=== PATIENT | female | born 1975 | race Two or more races ===

== ENCOUNTER → 2019-12-27 | Outpatient (CLI) | payer OTHER | END | disposition home or self-care (01) | LOC: SONOGRAMA 09:42 → MAMO-SONO 09:45 | PROVIDERS: ATTEND Obstetrics & Gynecology | DX: N84.0 Polyp of corpus uteri (principal); N88.8 Other specified noninflammatory disorders of cervix uteri ==

== ENCOUNTER 2020-03-20 11:11 | Emergency (ER) | payer OTHER ==
[~2020-03-20] VITALS: Ht 167.6 cm; Wt 68.0 kg
[2020-03-20] MEDS ORDERED: SYNTHROID100 MCG PO (11:22)
[2020-03-20] MEDS ORDERED: PROAIR HFA8.5 GM IH (11:22)
[2020-03-20] MEDS ORDERED: MONTELUKAST SOD10 MG PO (11:22)
[2020-03-20] MEDS ORDERED: GABAPENTIN100 M2 PO (11:22)
[2020-03-20] MEDS ORDERED: RESTORIL30 MG PO (11:22)
== END 2020-03-20 18:27 | disposition home or self-care (01) ==
LOC: ER 11:11
DX: J22 Unspecified acute lower respiratory infection (principal); B96.0 Mycoplasma pneumoniae [M. pneumoniae] as the cause of diseases classified elsewhere; R06.02 Shortness of breath; Z03.818 Encounter for observation for suspected exposure to other biological agents ruled out

== ENCOUNTER 2020-05-31 06:45 | Emergency (ER) | payer OTHER ==
[~2020-05-31] VITALS: Ht 167.6 cm; Wt 68.0 kg
[~2020-05-31 06:45] MED LIST: GABAPENTIN100 M2 PO; MONTELUKAST SOD10 MG PO; PROAIR HFA8.5 GM IH; RESTORIL30 MG PO; SYNTHROID100 MCG PO
[2020-05-31] MEDS ORDERED: PEPCID AC20 MG PO (16:16)
[2020-05-31] MEDS ORDERED: MEDROLPACK PO (16:16)
== END 2020-05-31 17:06 | disposition home or self-care (01) ==
LOC: ER 06:45
DX: N72 Inflammatory disease of cervix uteri (principal); R10.2 Pelvic and perineal pain; R10.32 Left lower quadrant pain; Z11.52 Encounter for screening for COVID-19

== ENCOUNTER 2021-06-18 09:58 | Day surgery (SDC) | payer OTHER ==
[~2021-06-18 09:58] MED LIST changes: +ADVAIR IH; +ENALAPRIL MALEAT5 MG PO; +MEDROLPACK PO; +PEPCID AC20 MG PO; +RESTORIL PO; +[UNRECOGNIZED DRUG - OTHER]
[2021-06-18] MEDS ORDERED: IBU800 MG PO (12:00)
[2021-06-18] MEDS ORDERED: IBUPROFEN800 MG PO ×2 (12:01→12:04)
== END 2021-06-18 13:30 | disposition home or self-care (01) ==
LOC: CIR.AMB 09:58
PROVIDERS: ATTEND Obstetrics & Gynecology Gynecology
DX: N92.0 Excessive and frequent menstruation with regular cycle (principal); Z20.822 Contact with and (suspected) exposure to COVID-19; Z88.8 Allergy status to other drugs, medicaments and biological substances; Z91.018 Allergy to other foods; I10 Essential (primary) hypertension; J45.909 Unspecified asthma, uncomplicated; E06.3 Autoimmune thyroiditis